=== PATIENT | male | born 1995 | race Caucasian/White ===

== ENCOUNTER 2017-06-02 03:55 | Emergency (ER) | payer OTHER ==
[~2017-06-02] VITALS: Ht 175.3 cm; Wt 63.5 kg
[2017-06-02] MEDS ORDERED: CLONAZEPAM (04:33)
[2017-06-02] MEDS ORDERED: ADDERALL (04:33)
--- NOTE | 2017-06-02 04:51 | NUR ---
Patient discharged to home in stable conditon. Written and verbal after care instructions given. Patient verbalizes understanding of instructions. Upon received ACI, patient demanded that the ERMD perform a more thorough examination stating that he felt like his concerns were not addressed. Patient is argumentative with staff despite attempt at education concerning his potential infection and treatment. Patient requested a "second opinion" and when advised that this was not possible at this location patient exited room stating "I'm not paying for this." ERMD notified. Patient presented for possible infection of his tattoos and was treated with antibiotics and analgesic medication, it is unclear as to why patient reacted to treatment plan as he did.
== END 2017-06-02 05:01 | disposition home or self-care (01) ==
LOC: ER 04:07
DX: R60.0 Localized edema (principal)
CPT/HCPCS: 99283; A4663